=== PATIENT | female | born 1940 | race Caucasian/White ===

== ENCOUNTER 2022-09-22 09:16 | Outpatient (CLI) | payer MEDICARE | END 2022-09-22 09:17 | disposition critical access hospital (66) | LOC: EMS 09:16 | DX: R53.1 Weakness (principal); R41.0 Disorientation, unspecified; I49.9 Cardiac arrhythmia, unspecified | CPT/HCPCS: A0425; A0427 ==

== ENCOUNTER 2022-09-22 09:52 | Emergency (ER) | payer MEDICARE, OTHER ==
--- NOTE | 2022-09-22 10:07 | ED Physician Documentation ---
PD HPI ALTERED MENTAL STATUS - Stated complaint Stated Complaint: DISORIENTED - Chief complaint Chief Complaint: Neuro - History obtained from History obtained from: Patient, Family, EMS - History of Present Illness Timing - onset: How many hours ago (1-2), Today Timing - duration: Hours (1) Timing - details: Gradual onset (patient states she developed feeling of general weakness, lightheaded and family noted that she seemed confused/somnolent. Improving enroute. EMS noted initial oxygen sats to be low at 89%. BP slightly low as well. Patient states she still feels generally weak, but not dyspnea now.), Still present Quality / character: Less responsive, Confused, Other (she states some element of vertigo as well, but mostly lightheaded.) Associated symptoms: Dyspnea, General weakness. No: Fever, Headache, Cough, Focal weakness, Syncope Contributing factors: COPD (has had some mild cough and wheezing past 2 days. Previously on home oxygen at night but stopped using/needing it a year or so ago.), Recent illness (has had some malaise and cough the past couple of days.). 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 denies: Fever, Chills Nose: denies: Rhinorrhea / runny nose, Congestion Throat: denies: Sore throat Cardiac: denies: Chest pain / pressure, Pedal edema Respiratory: reports: Cough GI: denies: Abdominal Pain, Nausea, Vomiting, Diarrhea PD PAST MEDICAL HISTORY - Past Medical History Cardiovascular: Murmur Respiratory: COPD - Past Surgical History Past Surgical History: Yes - Present Medications Home Medications: Ambulatory Orders Medication Instructions Recorded Confirmed ALPRAZolam [Alprazolam] 0.5 mg PO BID PRN 09/22/22 09/22/22 Alendronate Sodium 35 mg PO OAW 09/22/22 09/22/22 Atorvastatin Calcium 40 mg PO DAILY 09/22/22 09/22/22 Citalopram Hydrobromide 20 mg PO DAILY 09/22/22 09/22/22 [Citalopram HBr] Fluticasone/Umeclidin/Vilanter 1 puffs INH DAILY 09/22/22 09/22/22 [Treledary Ellipta 100-62.5-25] Lisinopril [Zestril] 20 mg PO DAILY 09/22/22 09/22/22 Melatonin/Pyridoxine [Melatonin 5 10 mg PO DAILY 09/22/22 09/22/22 mg Tablet] amLODIPine [Norvasc] 5 mg PO DAILY 09/22/22 09/22/22 - Allergies Allergies/Adverse Reactions: Allergies Allergy/AdvReac Type Severity Reaction Status Date / Time Penicillins Allergy Rash Verified 09/22/22 10:04 trazodone Allergy Rash Verified 09/22/22 10:04 - Living Situation Living Situation: reports: With family Living Arrangement: reports: At home (visiting from [place] to help her son who is ill. Has been here 2 weeks and intends to return home in a week. ) - Social History Does the pt smoke?: No Smoking Status: Former smoker Does the pt drink ETOH?: No - Family History Family history: reports: Non contributory PD ED PE NORMAL - Vitals Vital signs reviewed: Yes - General General: Alert and oriented X 3, Well developed/nourished - HEENT HEENT: Moist mucous membranes, Pharynx benign - Neck Neck: Supple, no meningeal sign, No adenopathy - Cardiac Cardiac: RRR, Other (2/6 systolic murmur left chest with radiation to neck) - Respiratory Respiratory: Clear bilaterally - Abdomen Abdomen: Soft, Non tender Results - Vitals Vitals: Vital Signs - 24 hr 09/22/22 09/22/22 09/22/22 09:56 10:17 10:36 Temperature 36.7 C 36.5 C Heart Rate 51 L 68 72 Heart Rate [ Sitting] Heart Rate [ Standing] Heart Rate [ Supine] Respiratory 17 14 15 Rate Blood Pressure 112/51 L 142/85 H 97/50 L Blood Pressure [Sitting] Blood Pressure [Standing] Blood Pressure [Supine] O2 Saturation 97 98 96 09/22/22 09/22/22 09/22/22 11:15 12:03 14:27 Temperature 36.5 C Heart Rate 80 51 L Heart Rate [ 62 Sitting] Heart Rate [ 70 Standing] Heart Rate [ 59 L Supine] Respiratory 20 16 Rate Blood Pressure 100/60 Blood Pressure 127/61 [Sitting] Blood Pressure 128/68 [Standing] Blood Pressure 114/62 [Supine] O2 Saturation 96 Oxygen O2 Source Room air - EKG (time done) 10:06 Rate: Rate (enter#) (51) Rhythm: Sinus bradycardia [place]ott: Normal Intervals: 1st degree AVB QRS: Normal Ischemia: Normal ST segments. No: ST elevation c/w ischemia, ST depression - Labs Labs: Laboratory Tests 09/22/22 09/22/22 09/22/22 11:05 11:25 11:25 WBC 6.4 RBC 4.09 L Hgb 11.9 L Hct 38.2 MCV 93.4 MCH 29.1 MCHC 31.2 L RDW 14.6 Plt Count 202 MPV 10.0 Neut # (Auto) 5.4 Lymph # (Auto) 0.5 L [place] # (Auto) 0.4 Eos # (Auto) 0.2 Baso # (Auto) 0.0 Absolute Nucleated RBC 0.00 Nucleated RBC % 0.0 D-Dimer Sodium 139 Potassium 4.4 Chloride 103 Carbon Dioxide 28 Anion Gap 8.0 BUN 29 H Creatinine 0.8 Estimated GFR (MDRD) 69 L Glucose 98 Calcium 9.2 Magnesium 2.0 Total Bilirubin 0.7 AST 18 ALT 13 Alkaline Phosphatase 62 Troponin I High Sens B-Natriuretic Peptide Total Protein 6.2 L Albumin 4.0 Globulin 2.2 Albumin/Globulin Ratio 1.8 Lipase 37 Nasal Adenovirus (PCR) NOT DETECTED Nasal B. parapertussis DNA (PCR) NOT DETECTED Nasal Coronavir 229E PCR NOT DETECTED Nasal Coronavir HKU1 PCR NOT DETECTED Nasal Coronavir NL63 PCR NOT DETECTED Nasal Coronavir OC43 PCR NOT DETECTED Nasal Enterovir/Rhinovir PCR NOT DETECTED Nasal Influenza B PCR NOT DETECTED Nasal Influenza A PCR NOT DETECTED Nasal Parainfluen 1 PCR NOT DETECTED Nasal Parainfluen 2 PCR NOT DETECTED Nasal Parainfluen 3 PCR NOT DETECTED Nasal Parainfluen 4 PCR NOT DETECTED Nasal RSV (PCR) NOT DETECTED Nasal B.pertussis DNA PCR NOT DETECTED Nasal C.pneumoniae (PCR) NOT DETECTED Brody Human Metapneumo PCR NOT DETECTED Nasal M.pneumoniae (PCR) NOT DETECTED Nasal SARS-CoV-2 (PCR) NOT DETECTED 09/22/22 09/22/22 09/22/22 11:25 11:25 11:25 WBC RBC Hgb Hct MCV MCH MCHC RDW Plt Count MPV Neut # (Auto) Lymph # (Auto) [place] # (Auto) Eos # (Auto) Baso # (Auto) Absolute Nucleated RBC Nucleated RBC % D-Dimer < 200.0 L Sodium Potassium Chloride Carbon Dioxide Anion Gap BUN Creatinine Estimated GFR (MDRD) Glucose Calcium Magnesium Total Bilirubin AST ALT Alkaline Phosphatase Troponin I High Sens 6.0 B-Natriuretic Peptide 174 H Total Protein Albumin Globulin Albumin/Globulin Ratio Lipase Nasal Adenovirus (PCR) Nasal B. parapertussis DNA (PCR) Nasal Coronavir 229E PCR Nasal Coronavir HKU1 PCR Nasal Coronavir NL63 PCR Nasal Coronavir OC43 PCR Nasal Enterovir/Rhinovir PCR Nasal Influenza B PCR Nasal Influenza A PCR Nasal Parainfluen 1 PCR Nasal Parainfluen 2 PCR Nasal Parainfluen 3 PCR Nasal Parainfluen 4 PCR Nasal RSV (PCR) Nasal B.pertussis DNA PCR Nasal C.pneumoniae (PCR) Brody Human Metapneumo PCR Nasal M.pneumoniae (PCR) Nasal SARS-CoV-2 (PCR) - Rads (name of study) chest xray Radiology: Prelim report reviewed (no acute process), See rad report head cT Radiology: Prelim report reviewed (age related changes. No acute process. ), See rad report PD MEDICAL DECISION MAKING - ED course Complexity details: reviewed results, re-evaluated patient (improved alertness and bp with fluids and time. ), considered differential (no obvious cause to her symptoms. Was low in BP and sats initially for EMS. Still low BP here but sats good. She does have murmur c/w aortic stenosis. She may have gotten slightly underhydrated and hit tipping point for cardiac output and got low BP with near syncope. Was not focal. ), d/w patient, d/w family (daughter) Departure - Departure Disposition: 01 Home, Self Care Clinical Impression: General weakness Altered mental status Qualifiers: Altered mental status type: somnolence Qualified Code(s): R40.0 - Somnolence Condition: Stable Record reviewed to determine appropriate education?: Yes Instructions: ED Altered Loc Comments: Its unclear the cause of your somnolence and general weakness and confusion. Your blood pressure was low coming here and initially while here. You seem to do better now with some IV fluids and increased blood pressure. Consideration would be for a mild viral illness as well given some of your cough etc. At this point I would suggest staying well-hydrated and holding on your blood pressure medicines over the next several days to week. See how you feel in general and return if worsening again. Your testing here included a CT of the head, EKG, chest x-ray, blood tests and there were no and a viral respiratory panel. No signs of the major viral illnesses such as COVID flu or RSV. No anemia. Your electrolytes are good. No signs of heart attack or heart failure or blood clots. Follow-up with your primary care and sweatband shaper when back home. They may want to reassess your heart murmur if it has not been evaluated recently with ultrasound. Under hydration can have a significant effect on some types of heart murmurs as it may require a little bit higher blood pressure to maintain flow through the valve. Discharge Date/Time: 09/22/22 15:15
[2022-09-22] MEDS ORDERED: SODIUM CHLORIDE 0.9% 500 ML IV STA ×2 (11:00→12:29)
[2022-09-22] MEDS ORDERED: IPRATROPIUM/ALBUTEROL 3 ML NEB INH STA (11:01)
[2022-09-22 11:29] LABS: BASOPHILS % (AUTO) 0.5 %; EOSINOPHILS # (AUTO) 0.2 10^3/uL (0.0-0.7); EOSINOPHILS % (AUTO) 2.3 %; HCT - HEMATOCRIT 38.2 % (37.0-47.0); HGB - HEMOGLOBIN 11.9 g/dL (12.0-16.0); LYMPHOCYTES # (AUTO) 0.5 10^3/uL (1.5-3.5); LYMPHOCYTES % (AUTO) 7.6 %; MEAN CORPUSCULAR HEMOGLOBIN 29.1 pg (27.0-31.0); MEAN CORPUSCULAR HGB CONC 31.2 g/dL (32.0-36.0); MEAN CORPUSCULAR VOLUME 93.4 fL (81.0-99.0); MONOCYTES # (AUTO) 0.4 10^3/uL (0.0-1.0); MONOCYTES % (AUTO) 5.6 %; NEUTROPHILS # (AUTO) 5.4 10^3/uL (1.5-6.6); NEUTROPHILS % (AUTO) 83.5 %; PLT - PLATELET COUNT 202 10^3/uL (130-450); RED BLOOD COUNT 4.09 10^6/uL (4.20-5.40); RED CELL DISTRIBUTION WIDTH 14.6 % (12.0-15.0); WHITE BLOOD COUNT 6.4 x10^3/uL (4.8-10.8)
--- NOTE | 2022-09-22 11:39 | XRAY Report ---
PROCEDURE: Chest 1 View X-Ray INDICATIONS: dyspnea TECHNIQUE: One view of the chest was acquired. COMPARISON: None. FINDINGS: Surgical changes and devices: None. Lungs and pleura: No pleural effusions or pneumothorax. Lungs are clear. Mediastinum: Mediastinal contours appear normal. Heart size is enlarged. Bones and chest wall: No suspicious bony lesions. Overlying soft tissues appear unremarkable. IMPRESSION: No acute pulmonary process. Reviewed by: Angelina Su MD on 09/22/2022 11:36 AM [facility] Approved by: Angelina Su MD on 09/22/2022 11:36 AM [facility] Station ID: [id number]
[2022-09-22 11:49] LABS: ALBUMIN/GLOBULIN RATIO 1.8 (1.0-2.2); BILIRUBIN,TOTAL 0.7 mg/dL (0.2-1.0); CALCIUM 9.2 mg/dL (8.5-10.3); CREATININE 0.8 mg/dL (0.4-1.0); POTASSIUM 4.4 mmol/L (3.5-5.0); TOTAL PROTEIN 6.2 g/dL (6.7-8.2)
[2022-09-22 12:03] LABS: B. PARAPERTUSSIS- RESP PCR PAN NOT DETECTED; B. PERTUSSIS- RESP PCR PANEL NOT DETECTED; C. PNEUMONIAE- RESP PCR PANEL NOT DETECTED; CORONAVIRUS 229E-RESP PCR NOT DETECTED; CORONAVIRUS HKU1-RESP PCR NOT DETECTED; CORONAVIRUS NL63-RESP PCR NOT DETECTED; CORONAVIRUS OC43-RESP PCR NOT DETECTED; HUMAN METAPNEUMOVIRUS NOT DETECTED; INFLUENZA A- RESP PCR PANEL NOT DETECTED; INFLUENZA B - RESP PCR PANEL NOT DETECTED; M. PNEUMONIAE- RESP PCR PANEL NOT DETECTED; PARAINFLUENZA VIRUS 1 NOT DETECTED; PARAINFLUENZA VIRUS 2 NOT DETECTED; PARAINFLUENZA VIRUS 3 NOT DETECTED; PARAINFLUENZA VIRUS 4 NOT DETECTED; RHINOVIRUS/ENTEROVIRUS NOT DETECTED; RSV- RESP PCR PANEL NOT DETECTED; SARS-CoV-2 -RESP PCR PANEL NOT DETECTED
[2022-09-22] MEDS ORDERED: DEXAMETHASONE 10 MG/ML VIAL IVP STA (12:46)
--- NOTE | 2022-09-22 13:52 | CT Report ---
PROCEDURE: HEAD WO INDICATIONS: somnolent and general weakness TECHNIQUE: Noncontrast 4.5 mm thick angled axial sections acquired from the foramen magnum to the vertex. For r adiation dose reduction, the following was used: automated exposure control, adjustment of mA and/or kV according to patient size. COMPARISON: None. FINDINGS: Image quality: Excellent. The ventricular system and cortical sulci demonstrate atrophy, consistent for patient's stated age. There are areas of hypodensity in the periventricular and subcortical white matter. There is no acut e intra or extra-axial fluid collection. No acute hemorrhage, mass lesion or midline shift. Brainst em is unremarkable. Globes are symmetrical. Sinuses are aerated. Osseous structures are intact. IMPRESSION: 1. No acute intracranial process. 2. Moderate atrophy and chronic microvascular ischemic changes. Reviewed by: Angelina Su MD on 09/22/2022 1:50 PM PST Approved by: Angelina Su MD on 09/22/2022 1:50 PM PST Station ID: [id number]
[2022-09-22 14:28] VITALS: BP 114/62
== END 2022-09-22 15:15 | disposition home or self-care (01) ==
LOC: ED 09:52
DX: R53.1 Weakness (principal); R40.0 Somnolence; Z20.822 Contact with and (suspected) exposure to COVID-19; J44.9 Chronic obstructive pulmonary disease, unspecified; Z87.891 Personal history of nicotine dependence
CPT/HCPCS: 36415; 80053; 83690; 83735; 83880; 84484; 85025; 85379; 87633; 93005; 94640; 96361; 96374; 99283